=== PATIENT | female | born 1955 | race Caucasian/White ===

== ENCOUNTER 2018-07-09 05:21 | Inpatient (IN) | payer OTHER ==
[2018-07-09] MEDS: LACTATED RINGER'S 1,000 ML IV* (06:16)
[2018-07-09] MEDS ORDERED: GELATIN SIZE 100 SPONGE (06:46)
[2018-07-09] MEDS ORDERED: CA CHLORIDE (GM) 10% 10 ML INJ (06:51)
[2018-07-09] MEDS ORDERED: HEPARIN 1000 UNITS/ML 10 ML INJ ×2 (06:51→06:57)
[2018-07-09] MEDS ORDERED: SUCCINYLCHOLINE CHLORIDE 100 MG/5 ML SYG IV (06:58)
[2018-07-09] MEDS ORDERED: METOCLOPRAMIDE 10 MG INJ (06:58)
[2018-07-09] MEDS ORDERED: ONDANSETRON 4 MG INJ (06:58)
[2018-07-09] MEDS ORDERED: ROCURONIUM 50 MG INJ ×2 (06:58→07:00)
[2018-07-09] MEDS ORDERED: MIDAZOLAM 1 MG/ML 2 ML INJ (06:58)
[2018-07-09] MEDS ORDERED: PROPOFOL 20 ML (06:58)
[2018-07-09] MEDS ORDERED: CEFAZOLIN 1 GM INJ (06:58)
[2018-07-09] MEDS ORDERED: EPHEDrine SULFATE 50 MG/5 ML SYG (07:00)
[2018-07-09] MEDS ORDERED: PROPOFOL 200 MG INJ (07:00)
[2018-07-09] MEDS: CEFAZOLIN 2 GM/50 ML (PMX) 50 ML IVPB (07:00)
[2018-07-09] MEDS ORDERED: HYDROmorphONE 2 MG/ML SYG (07:19)
[2018-07-09] MEDS ORDERED: MEPERIDINE 25 MG INJ IV (07:30)
[2018-07-09] MEDS ORDERED: LABETALOL HCL 20MG INJ IV (07:30)
[2018-07-09] MEDS ORDERED: HYDROmorphONE 1 MG/5 ML IV SYRINGE IV (07:30)
[2018-07-09] MEDS ORDERED: hydrALAzine 20 MG INJ IV (07:30)
[2018-07-09] MEDS ORDERED: ONDANSETRON 4 MG INJ IV ×2 (07:30→11:00)
[2018-07-09] MEDS ORDERED: DIPHENHYDRAMINE 50 MG INJ IV ×2 (07:30→11:00)
[2018-07-09] MEDS: CEFAZOLIN 1 GM INJ (08:02)
[2018-07-09] MEDS: SURGIFOAM POWDER 1 GM KIT ×2 (08:03→09:51)
[2018-07-09] MEDS: THROMBIN 5000 UNIT VIAL ×2 (08:03→09:51)
[2018-07-09] MEDS ORDERED: HYDROmorphONE 0.5 MG/0.5 ML SYG IV (09:00)
[2018-07-09] MEDS: D5W-0.45 NACL + KCL 20 MEQ 1,000 ML IV ×2 (11:00→20:08)
[2018-07-09] MEDS ORDERED: BISACODYL 10 MG SUPP PR (11:00)
[2018-07-09] MEDS ORDERED: DIPHENHYDRAMINE 25 MG CAP PO (11:00)
[2018-07-09] MEDS ORDERED: AL HYDROX/MG HYDROX/SIMETH 30 ML CUP PO (11:00)
[2018-07-09] MEDS ORDERED: CEPASTAT LOZENGE MT (11:00)
[2018-07-09] MEDS ORDERED: ACETAMINOPHEN 325 MG TAB PO (11:00)
[2018-07-09] MEDS ORDERED: NALOXONE (0.4 MG/ML) INJ IV (11:00)
[2018-07-09] MEDS: BUPIVACAINE 0.5%/EPI (SDV) 30 ML INJ (11:04)
[2018-07-09] MEDS: HYDROmorphONE 1 MG/5 ML IV SYRINGE IV ×2 (12:00→12:12)
[2018-07-09] MEDS: HYDROmorphONE 0.2 MG/ML PCA IV ×2 (12:06→18:32)
[2018-07-09] MEDS: CEFAZOLIN 1 GM/50 ML (PMX) 50 ML IVPB ×2 (12:15→20:08)
[2018-07-09] MEDS ORDERED: FENTAnyl 50 MCG/ML VIAL (12:23)
[2018-07-09] MEDS: FENTAnyl 50 MCG/ML VIAL IV (12:43)
[2018-07-09] MEDS: METHOCARBAMOL 500 MG TAB PO ×2 (14:52→21:01)
[2018-07-09] MEDS: GABAPENTIN 300 MG CAP PO ×2 (20:08→20:45)
[2018-07-09] MEDS: ATORVASTATIN 20 MG TAB PO (20:08)
[2018-07-09] MEDS: DOCUSATE SODIUM 100 MG CAP PO (20:08)
[2018-07-10] MEDS: CEFAZOLIN 1 GM/50 ML (PMX) 50 ML IVPB (04:26)
[2018-07-10 05:11] LABS: ADD MAN DIFF? NO
[2018-07-10 05:25] LABS: ABNORMAL IP MESSAGE 1; BASOPHILS % 0.1 % (0.0-2.0); EOSINOPHILS # 0.2 10^3/ul (0.0-0.5); EOSINOPHILS % 2.3 % (0.0-7.0); HEMATOCRIT 33.7 % (37.0-47.0); LYMPHOCYTES # 0.5 10^3/ul (0.8-2.9); LYMPHOCYTES % 5.8 % (15.0-51.0); MEAN CORPUSCULAR HEMOGLOBIN 32.5 pg (29.0-33.0); MEAN CORPUSCULAR HGB CONC 32.6 g/dl (32.0-37.0); MEAN CORPUSCULAR VOLUME 99.7 fl (82.0-101.0); MEAN PLATELET VOLUME 10.1 fl (7.4-10.4); MONOCYTE # 0.5 10^3/ul (0.3-0.9); MONOCYTES % 6.7 % (0.0-11.0); NEUTROPHIL # 6.5 10^3/ul (1.6-7.5); NEUTROPHILS % 84.7 % (39.0-77.0); PLATELET COUNT 156 10^3/UL (140-415); RED BLOOD COUNT 3.38 10^6/ul (4.20-5.40); RED CELL DISTRIBUTION WIDTH 12.8 % (11.5-14.5)
[2018-07-10 05:25] LABS: WHITE BLOOD COUNT 7.7 10^3/ul (4.8-10.8)
[2018-07-10] MEDS: PANTOPRAZOLE 40 MG INJ IV (05:34)
[2018-07-10] MEDS: HYDROmorphONE 0.2 MG/ML PCA IV ×2 (05:41→19:40)
[2018-07-10 05:44] LABS: ANION GAP 6 (5-13); BLOOD UREA NITROGEN 11 mg/dl (7-20); CALCIUM 8.8 mg/dl (8.4-10.2); CARBON DIOXIDE 28 mmol/L (21-31); CHLORIDE 104 mmol/L (97-110); CREATININE 0.64 mg/dl (0.44-1.00); Estimated GFR > 60 mL/min (>60); GLUCOSE 141 mg/dl (70-220); MAGNESIUM 1.9 mg/dl (1.7-2.5); POTASSIUM 4.1 mmol/L (3.5-5.1); SODIUM 138 mmol/L (135-144)
[2018-07-10 05:46] LABS: POSITIVE DIFF @See below
[2018-07-10] MEDS: DOCUSATE SODIUM 100 MG CAP PO ×2 (09:04→21:33)
[2018-07-10] MEDS: D5W-0.45 NACL + KCL 20 MEQ 1,000 ML IV (09:08)
[2018-07-10] MEDS: METHOCARBAMOL 500 MG TAB PO (09:08)
[2018-07-10] MEDS: GABAPENTIN 300 MG CAP PO ×2 (21:00→21:32)
[2018-07-10] MEDS: ATORVASTATIN 20 MG TAB PO (21:32)
[2018-07-11] MEDS: D5W-0.45 NACL + KCL 20 MEQ 1,000 ML IV ×2 (04:17→20:49)
[2018-07-11 05:24] LABS: ADD MAN DIFF? NO
[2018-07-11 05:30] LABS: WHITE BLOOD COUNT 7.3 10^3/ul (4.8-10.8)
[2018-07-11 05:30] LABS: BASOPHILS % 0.1 % (0.0-2.0); EOSINOPHILS # 0.2 10^3/ul (0.0-0.5); HEMATOCRIT 31.9 % (37.0-47.0); HEMOGLOBIN 10.6 g/dl (12.0-16.0); LYMPHOCYTES # 0.8 10^3/ul (0.8-2.9); LYMPHOCYTES % 10.8 % (15.0-51.0); MEAN CORPUSCULAR HEMOGLOBIN 32.4 pg (29.0-33.0); MEAN CORPUSCULAR HGB CONC 33.2 g/dl (32.0-37.0); MEAN CORPUSCULAR VOLUME 97.6 fl (82.0-101.0); MEAN PLATELET VOLUME 10.3 fl (7.4-10.4); MONOCYTE # 0.7 10^3/ul (0.3-0.9); MONOCYTES % 9.5 % (0.0-11.0); NEUTROPHIL # 5.6 10^3/ul (1.6-7.5); NEUTROPHILS % 76.2 % (39.0-77.0); PLATELET COUNT 161 10^3/UL (140-415); RED BLOOD COUNT 3.27 10^6/ul (4.20-5.40); RED CELL DISTRIBUTION WIDTH 12.3 % (11.5-14.5)
[2018-07-11 05:57] LABS: ANION GAP 9 (5-13); BLOOD UREA NITROGEN 7 mg/dl (7-20); CALCIUM 8.8 mg/dl (8.4-10.2); CARBON DIOXIDE 27 mmol/L (21-31); CHLORIDE 102 mmol/L (97-110); CREATININE 0.46 mg/dl (0.44-1.00); Estimated GFR > 60 mL/min (>60); GLUCOSE 126 mg/dl (70-220); MAGNESIUM 1.9 mg/dl (1.7-2.5); POTASSIUM 3.7 mmol/L (3.5-5.1); SODIUM 138 mmol/L (135-144)
[2018-07-11] MEDS: OXYCODONE/ACETAMINOPHEN (10/325) TAB PO ×4 (08:34→23:10)
[2018-07-11] MEDS ORDERED: OXYCODONE/ACETAMINOPHEN (10/325) TAB PO (08:36)
[2018-07-11] MEDS: DOCUSATE SODIUM 100 MG CAP PO ×2 (08:43→21:19)
[2018-07-11] MEDS: FAMOTIDINE 20 MG TAB PO ×2 (08:43→21:19)
[2018-07-11] MEDS: METHOCARBAMOL 500 MG TAB PO ×3 (10:43→22:09)
[2018-07-11] MEDS: GABAPENTIN 300 MG CAP PO ×2 (21:00→21:19)
[2018-07-11] MEDS: ATORVASTATIN 20 MG TAB PO (21:19)
[2018-07-12] MEDS: OXYCODONE/ACETAMINOPHEN (10/325) TAB PO ×2 (03:30→07:33)
[2018-07-12] MEDS: METHOCARBAMOL 500 MG TAB PO (04:53)
[2018-07-12 05:30] LABS: ADD MAN DIFF? NO
[2018-07-12 05:35] LABS: BASOPHILS % 0.4 % (0.0-2.0); EOSINOPHILS # 0.4 10^3/ul (0.0-0.5); EOSINOPHILS % 5.3 % (0.0-7.0); HEMOGLOBIN 10.4 g/dl (12.0-16.0); LYMPHOCYTES # 1.2 10^3/ul (0.8-2.9); LYMPHOCYTES % 16.1 % (15.0-51.0); MEAN CORPUSCULAR HEMOGLOBIN 32.5 pg (29.0-33.0); MEAN CORPUSCULAR HGB CONC 33.5 g/dl (32.0-37.0); MEAN CORPUSCULAR VOLUME 96.9 fl (82.0-101.0); MEAN PLATELET VOLUME 10.4 fl (7.4-10.4); MONOCYTE # 0.8 10^3/ul (0.3-0.9); MONOCYTES % 11.1 % (0.0-11.0); NEUTROPHIL # 4.9 10^3/ul (1.6-7.5); NEUTROPHILS % 66.7 % (39.0-77.0); PLATELET COUNT 171 10^3/UL (140-415); RED CELL DISTRIBUTION WIDTH 12.3 % (11.5-14.5)
[2018-07-12 05:35] LABS: WHITE BLOOD COUNT 7.3 10^3/ul (4.8-10.8)
[2018-07-12 06:02] LABS: ANION GAP 9 (5-13); BLOOD UREA NITROGEN 8 mg/dl (7-20); CALCIUM 9.1 mg/dl (8.4-10.2); CARBON DIOXIDE 29 mmol/L (21-31); CHLORIDE 102 mmol/L (97-110); CREATININE 0.58 mg/dl (0.44-1.00); Estimated GFR > 60 mL/min (>60); GLUCOSE 101 mg/dl (70-220); MAGNESIUM 2.1 mg/dl (1.7-2.5); POTASSIUM 3.7 mmol/L (3.5-5.1); SODIUM 140 mmol/L (135-144)
[2018-07-12] MEDS: FAMOTIDINE 20 MG TAB PO (08:29)
[2018-07-12] MEDS: DOCUSATE SODIUM 100 MG CAP PO (08:30)
== END 2018-07-12 11:40 | disposition home or self-care (01) | DRG 455 ==
LOC: REC 05:21 → MS1 13:54
PROC: 0SG00AJ Fusion of Lumbar Vertebral Joint with Interbody Fusion Device, Posterior Approach, Anterior Column, Open Approach (ICD-10-PCS; principal; 2018-07-09 07:00)
PROC: 0SG0071 Fusion of Lumbar Vertebral Joint with Autologous Tissue Substitute, Posterior Approach, Posterior Column, Open Approach (ICD-10-PCS; 2018-07-09 07:00)
PROC: 0ST20ZZ Resection of Lumbar Vertebral Disc, Open Approach (ICD-10-PCS; 2018-07-09 07:00)
PROC: 4A11X4G Monitoring of Peripheral Nervous Electrical Activity, Intraoperative, External Approach (ICD-10-PCS; 2018-07-09 07:00)
DX: M43.16 Spondylolisthesis, lumbar region (principal); M48.062 Spinal stenosis, lumbar region with neurogenic claudication; E78.5 Hyperlipidemia, unspecified; M54.16 Radiculopathy, lumbar region
CPT/HCPCS: 72110; 80048; 83735; 85025; 86850; 86900; 86901; 86999; 87086; 88304; 88311; 97116; 97162; 97530